=== PATIENT | male | born 1970 | race Caucasian/White ===

== ENCOUNTER 2020-02-11 14:22 | Emergency (ER) | payer OTHER ==
[2020-02-11] MEDS ORDERED: predniSONE 20 MG TABLET PO STA (14:45)
[2020-02-11] MEDS ORDERED: FAMOTIDINE 20 MG TABLET PO STA (14:45)
--- NOTE | 2020-02-11 14:48 | ED Physician Documentation ---
History of Present Illness - Stated complaint Stated Complaint: ALLERGIC REACTION - Chief complaint Chief Complaint: Allergic Rx - History obtained from History obtained from: Patient - History of Present Illness Timing: Prior to arrival, How many hours ago (1) - Additonal information Additional information: 49-year-old male presents to the emergency department with chief complaint of acute allergic reaction. He was working in his yard and was stung on the right wrist by a wasp approximately 1 hour ago. Shortly after the sting the patient began to develop generalized urticaria then however he noted lip and tongue tingling and his lips began to swell. He took 50 mg of Benadryl and presented to the emergency department. Since taking the Benadryl the tongue swelling has improved. Patient denies chest pain or dyspnea right now but generalized urticaria is present. He has no history of previous anaphylaxis or bee envenomation reaction. Review of Systems Constitutional: reports: Reviewed and negative Eyes: reports: Reviewed and negative Ears: reports: Reviewed and negative Nose: reports: Reviewed and negative Throat: reports: Other (lip swelling) Cardiac: denies: Chest pain / pressure, Palpitations, Pedal edema, Calf pain Respiratory: denies: Dyspnea, Cough, Hemoptysis, Wheezing GI: denies: Abdominal Pain, Abdominal Swelling, Nausea : denies: Dysuria, Frequency, Hesitancy Skin: reports: Rash (generalized urticartia), Bite / sting (right wrist) Musculoskeletal: denies: Neck pain, Back pain Neurologic: denies: Generalized weakness, Focal weakness, Syncope, Seizure PD PAST MEDICAL HISTORY - Present Medications Home Medications: Ambulatory Orders Medication Instructions Recorded Confirmed EPINEPHrine [Epinephrine] 0.3 mg IJ ONCE PRN #1 auto.injct 02/11/20 Famotidine [Pepcid] 20 mg PO BID #60 tablet 02/11/20 diphenhydrAMINE [Benadryl] 25 mg PO BID #8 capsule 02/11/20 predniSONE [Prednisone] 40 mg PO DAILY #8 tablet 02/11/20 - Allergies Allergies/Adverse Reactions: Allergies Allergy/AdvReac Type Severity Reaction Status Date / Time No Known Drug Allergies Allergy Verified 02/11/20 14:31 PD ED PE NORMAL - General General: Alert and oriented X 3, No acute distress - HEENT HEENT: Atraumatic, PERRL, EOMI, Ears normal, Moist mucous membranes, Pharynx benign - Neck Neck: Supple, no meningeal sign, No adenopathy - Cardiac Cardiac: RRR, No murmur - Respiratory Respiratory: No respiratory distress, Clear bilaterally - Abdomen Abdomen: Normal bowel sounds, Soft, Non tender - Derm Derm: Normal color, Other. No: No rash (Generalized urticaria of all 4 extremities and trunk. No tongue swelling noted at present. Normal phonation and swallow. Full range of motion of neck.) Results - Vitals Vitals: Vital Signs - 24 hr 02/11/20 02/11/20 02/11/20 14:26 15:01 15:30 Heart Rate 85 73 79 Respiratory 20 18 19 Rate Blood Pressure 100/63 111/84 H 120/87 H O2 Saturation 99 99 99 Oxygen O2 Source Room air PD MEDICAL DECISION MAKING - ED course Complexity details: considered differential, d/w patient ED course: 49-year-old male presents to the emergency department with acute generalized urticaria after being stung by a wasp at home approximately 1 hour prior to arrival. For short time patient did develop tongue and lip swelling but that resolved after taking Benadryl. Here in the emergency department we will give him some Benadryl and Pepcid. Will observe for further tongue swelling for the next 1 to 2 hours. However if none develops he will be discharged with a prescription for prednisone as well as an EpiPen. Advise close follow-up with his primary care provider Departure - Departure Disposition: 01 Home, Self Care Clinical Impression: Bee sting reaction Qualifiers: Encounter type: initial encounter Injury intent: accidental or unintentional Qualified Code(s): T63.441A - Toxic effect of venom of bees, accidental (unintentional), initial encounter Condition: Stable Record reviewed to determine appropriate education?: Yes Instructions: ED Bite Sting Insect Gen Allergic React Follow-Up: LINSEY CHAUDHARY DO [Primary Care Provider] - Prescriptions: diphenhydrAMINE [Benadryl] 25 mg PO BID #8 capsule EPINEPHrine [Epinephrine] 0.3 mg IJ ONCE PRN #1 auto.injct PRN Reason: Anaphylaxis Famotidine [Pepcid] 20 mg PO BID #60 tablet predniSONE [Prednisone] 40 mg PO DAILY #8 tablet Comments: Please take the Benadryl and Pepcid twice daily for the next 2 to 3 days. I have also written a prescription for prednisone that he should take for the next 4 days. I do recommend that you fill the prescription for the EpiPen and carry it with you especially if you are outside doing yard work or hiking. Schedule close follow-up with your primary care doctor to discuss this ED visit. If at any point you have difficulty breathing a return of lip swelling or develop chest pain return to the emergency department
[2020-02-11 15:38] VITALS: BP 120/87
== END 2020-02-11 15:45 | disposition home or self-care (01) ==
LOC: EDBD → ED 14:22
DX: T63.441A Toxic effect of venom of bees, accidental (unintentional), initial encounter (principal); L50.9 Urticaria, unspecified; Y92.007 Garden or yard of unspecified non-institutional (private) residence as the place of occurrence of the external cause
CPT/HCPCS: 99283; 99284; A9270; J7512